=== PATIENT | female | born 1945 | race Caucasian/White ===

== ENCOUNTER 2019-12-25 09:06 | Outpatient (CLI) | payer MEDICARE, SELFPAY ==
[2019-12-25 10:00] LABS: Alanine Aminotransferase 22 U/L (14-59); Albumin Level 3.9 g/dL (3.4-5.0); Alkaline Phosphatase 67 U/L (46-116); Anion Gap 9.4 mmol/L (7-16); Aspartate Amino Transferase 20 U/L (15-37); Bilirubin,Total 0.6 mg/dL (0.00-1.00); Blood Urea Nitrogen 16 mg/dL (7-18); Calcium 9.5 mg/dL (8.5-10.1); Carbon Dioxide 31 mmol/L (21-32); Chloride 103 mmol/L (98-108); Cholesterol 177 mg/dL (0-200); Estimated Glomerular Filt Rate > 60; Glucose 86 mg/dL (70-99); HDL Direct 62 mg/dL (40-60); LDL Cholesterol Calculated 105 mg/dL (<130); Osmolality Calculated 288 mOsm/kg (285-295); Potassium 4.4 mmol/L (3.5-5.1); Sodium 139 mmol/L (136-145); Total Protein 7.2 g/dL (6.4-8.2); Triglycerides 51 mg/dL (0-150)
== END 2019-12-25 09:07 | disposition home or self-care (01) ==
LOC: CHSLAB 09:08
PROVIDERS: PCP Internal Medicine; Visit Provider Internal Medicine
DX: E78.5 Hyperlipidemia, unspecified (principal); I10 Essential (primary) hypertension
CPT/HCPCS: 36415; 80053; 80061

== ENCOUNTER 2020-10-05 08:33 | Outpatient (CLI) | payer MEDICARE, SELFPAY ==
[2020-10-05 08:52] LABS: Basophils Absolute Auto 0.09 K/mm3 (0.00-0.10); Basophils Percent Auto 1.1 % (0.0-1.0); Eosinophils Absolute Auto 0.18 K/mm3 (0.02-0.50); Eosinophils Percent Auto 2.3 % (1.0-6.0); Hematocrit 42.6 % (35.0-42.0); Hemoglobin 13.9 g/dL (11.7-13.8); Immature Granulocyte Absolute 0.02 K/mm3 (0.00-0.00); Immature Granulocyte Percent A 0.3 % (0.0-0.0); Lymphocytes Absolute Auto 1.89 K/mm3 (1.10-4.50); Lymphocytes Percent Auto 23.8 % (18.0-42.0); Mean Corpuscular HGB Conc 32.6 g/dL (32.0-36.0); Mean Corpuscular Hemoglobin 32.1 pg (27.0-31.0); Mean Corpuscular Volume 98.4 fL (78.0-102.0); Mean Platelet Volume 9.7 fl (9.2-11.8); Monocytes Absolute Auto 0.67 K/mm3 (0.10-0.90); Monocytes Percent Auto 8.4 % (2.0-11.0); Neutrophils Absolute Auto 5.1 K/mm3 (1.7-7.2); Neutrophils Percent Auto 64.1 % (50.0-70.0); Platelet Count Result 301 K/mm3 (150-420); Red Blood Count 4.33 M/mm3 (4.20-5.40); Red Cell Distribution Width 12.2 % (11.6-14.4); White Blood Count 7.9 K/mm3 (4.8-10.8)
[2020-10-05 08:56] LABS: Add Urine Microscopic? YES; Appearance Urine Clear (Clear); Bilirubin Urine Negative (Negative); Blood Urine 1+ (Negative); Color Urine Yellow (Yellow); Glucose Urine UA Negative (Negative); Ketones Urine Negative (Negative); Leukocyte Esterase Ur 1+ LEU/UL (Negative); Nitrate Urine Negative (Negative); Protein Urine Negative (Negative); Specific Grav Ur >= 1.030 (1.010-1.020); Urobilinogen Urine 0.2 mg/dL (0.2-1.0); pH Urine 5.5 (5.0-8.0)
[2020-10-05 09:11] LABS: Bacteria Urine Trace /hpf; RBC Urine 0-2 /hpf (0-2); Squamous Epithelial Cell Urine Rare /hpf (Few); WBC Urine 0-3 /hpf (0-3)
[2020-10-05 09:26] LABS: Alanine Aminotransferase 22 U/L (14-59); Albumin Level 3.8 g/dL (3.4-5.0); Alkaline Phosphatase 75 U/L (46-116); Anion Gap 5 mmol/L (8-16); Aspartate Amino Transferase 19 U/L (15-37); Bilirubin,Total 0.5 mg/dL (0.00-1.00); Blood Urea Nitrogen 14 mg/dL (7-18); Calcium 9.6 mg/dL (8.5-10.1); Carbon Dioxide 32 mmol/L (21-32); Chloride 104 mmol/L (98-108); Cholesterol 202 mg/dL (0-200); Estimated Glomerular Filt Rate > 60; Glucose 65 mg/dL (70-99); HDL Direct 72 mg/dL (40-60); LDL Cholesterol Calculated 113 mg/dL (<130); Osmolality Calculated 290 mOsm/kg (285-295); Potassium 4.3 mmol/L (3.5-5.1); Sodium 141 mmol/L (136-145); Total Protein 7.4 g/dL (6.4-8.2); Triglycerides 86 mg/dL (0-150)
== END 2020-10-05 08:34 | disposition home or self-care (01) ==
LOC: CHSLAB 08:35
PROVIDERS: PCP Internal Medicine; Visit Provider Internal Medicine
DX: E78.5 Hyperlipidemia, unspecified (principal); I10 Essential (primary) hypertension; R82.90 Unspecified abnormal findings in urine
CPT/HCPCS: 36415; 80053; 80061; 81001; 85025; 87086; 87088

== ENCOUNTER 2021-08-16 08:09 | Outpatient (CLI) | payer MEDICARE, SELFPAY ==
[2021-08-16 08:41] LABS: Appearance Urine Clear (Clear); Basophils Absolute Auto 0.08 K/mm3 (0.00-0.10); Basophils Percent Auto 1.2 % (0.0-1.0); Bilirubin Urine Negative (Negative); Color Urine Light Yellow (Yellow); Eosinophils Absolute Auto 0.19 K/mm3 (0.02-0.50); Eosinophils Percent Auto 2.9 % (1.0-6.0); Glucose Urine UA Negative (Negative); Hematocrit 41.8 % (35.0-42.0); Hemoglobin 13.9 g/dL (11.7-13.8); Immature Granulocyte Absolute 0.02 K/mm3 (0.00-0.00); Immature Granulocyte Percent A 0.3 % (0.0-0.0); Ketones Urine Negative (Negative); Leukocyte Esterase Ur Trace (Negative); Lymphocytes Absolute Auto 1.65 K/mm3 (1.10-4.50); Lymphocytes Percent Auto 24.8 % (18.0-42.0); Mean Corpuscular HGB Conc 33.3 g/dL (32.0-36.0); Mean Corpuscular Hemoglobin 32.6 pg (27.0-31.0); Mean Corpuscular Volume 97.9 fL (78.0-102.0); Mean Platelet Volume 9.7 fl (9.2-11.8); Monocytes Percent Auto 10.5 % (2.0-11.0); Neutrophils Percent Auto 60.3 % (50.0-70.0); Nitrate Urine Negative (Negative); Platelet Count Result 307 K/mm3 (150-420); Protein Urine Negative (Negative); Red Blood Count 4.27 M/mm3 (4.20-5.40); Red Cell Distribution Width 12.2 % (11.6-14.4); Specific Grav Ur 1.015 (1.010-1.020); Urobilinogen Urine 0.2 mg/dL (0.2-1.0); White Blood Count 6.7 K/mm3 (4.8-10.8); pH Urine 6.5 (5.0-8.0)
[2021-08-16 10:05] LABS: Add Urine Microscopic? YES; Bacteria Urine Trace /hpf; Blood Urine Trace-lysed (Negative); RBC Urine None seen /hpf (0-2); Squamous Epithelial Cell Urine Rare /hpf (Few); WBC Urine 0-3 /hpf (0-3)
[2021-08-16 11:37] LABS: Alanine Aminotransferase 21 U/L (14-59); Albumin Level 3.8 g/dL (3.4-5.0); Alkaline Phosphatase 69 U/L (46-116); Anion Gap 7 mmol/L (8-16); Aspartate Amino Transferase 16 U/L (15-37); Bilirubin,Total 0.6 mg/dL (0.00-1.00); Blood Urea Nitrogen 13 mg/dL (7-18); Calcium 9.5 mg/dL (8.5-10.1); Carbon Dioxide 29 mmol/L (21-32); Chloride 105 mmol/L (98-108); Cholesterol 195 mg/dL (0-200); Estimated Glomerular Filt Rate > 60; Glucose 89 mg/dL (70-99); HDL Direct 68 mg/dL (40-60); LDL Cholesterol Calculated 107 mg/dL (<130); Osmolality Calculated 291 mOsm/kg (285-295); Potassium 4.8 mmol/L (3.5-5.1); Sodium 141 mmol/L (136-145); Thyroid Stimulating Hormone 1.14 uIU/mL (0.36-3.74); Total Protein 7.2 g/dL (6.4-8.2); Triglycerides 99 mg/dL (0-150)
== END 2021-08-16 08:10 | disposition home or self-care (01) ==
LOC: CHSLAB 08:12
PROVIDERS: PCP Internal Medicine; Visit Provider Internal Medicine
DX: E78.5 Hyperlipidemia, unspecified (principal); I10 Essential (primary) hypertension
CPT/HCPCS: 36415; 80053; 80061; 81001; 84443; 85025

== ENCOUNTER 2022-10-16 08:41 | Outpatient (CLI) | payer MEDICARE, SELFPAY ==
--- NOTE | ~2022-10-16 | DEXA_ITS ---
Bone Density Report Name: ALIZA REGAN Age: 77 Sex: Female Ethnicity: White Date of : 1945 Indication: postmenopausal; screening for osteoporosis; height loss; hysterectomy; Referring Provider: Maged Vernon Study: Bone densitometry was performed. Exam Date: October 16, 2022 Accession number: [id number] Bone Density: Region BMD T-score Z-score Classification AP Spine(L1, L2, L3) 0.896 -1.1 1.2 Osteopenia Femoral Neck (Left) 0.504 -3.1 -1.0 Osteoporosis Total Hip (Left) 0.629 -2.6 -0.8 Osteoporosis Femoral Neck (Right) 0.603 -2.2 -0.1 Osteopenia Total Hip (Right) 0.718 -1.8 -0.1 Osteopenia Femoral Neck Mean 0.553 -2.7 -0.6 Osteoporosis Total Hip Mean 0.673 -2.2 -0.4 Osteopenia World Health Organization criteria for BMD impression classify patients as: Normal (T-score at or above -1.0), Osteopenia (T-score between -1.0 and -2.5), or Osteoporosis (T-score at or below -2.5). 10-year Fracture Risk: FRAX not reported because: Some T-score for Spine Total or Hip Total or Femoral Neck at or below -2.5 Clinical Information Provided by Patient: Has used the following medications: Fosamax (i.e. alendronate), Vitamin D, Calcium Has the following medical conditions: Hysterectomy Patient maximum height was 68 Menopause Age: 47 No regular weight bearing exercise Does not regularly consume dairy products Drinks caffeinated beverages Onset of menses at age 18 Number of children 1 Impression: The patient has osteoporosis, based on the Left Femoral Neck T-score. Discussion: INCREASED RISK OF FRACTURE. BONE DENSITY IS UNDESIRABLY LOW AT ONE OR MORE SKELETAL SITES, CONSISTENT WITH POSTMENOPAUSAL OSTEOPOROSIS. This patient's lowest T-score meets the World Health Organization's (WHO) criteria for osteoporosis at one or more sites (T-score -2.5 or below). In untreated patients, the risk of osteoporotic fracture increases approximately two-fold for each 1.0 SD decrease in T-score. Low bone density is not the only risk factor for fracture; also consider factors such as patient's age, frailty or poor health, risk of falling, risk of injury, previous osteoporotic fracture, family history of osteoporosis, cigarette smoking, low body weight, etc. Not everyone with low bone mineral density has osteoporosis; osteomalacia and other metabolic bone disorders should also be considered. Patients who have osteoporosis should be evaluated for specific diseases and conditions (secondary causes) that may cause or contribute to bone loss. The [place] [employer]ocrin[employer] (AACE) and National Osteoporosis Foundation (NOF) recommend pharmacologic intervention for all postmenopausal women whose T-score is in this range. The patient should follow a healthful lifestyle (good nutrition with adequat
--- NOTE | ~2022-10-16 | MM_ITS ---
EXAMINATION: MM screening [facility] ujdy HISTORY: Screening mammogram TECHNIQUE: Craniocaudal and mediolateral oblique 3-D tomosynthesis images were obtained and synthetic 2-D images were generated. CAD analysis was submitted and interpreted. COMPARISON: 06/23/2019, 05/17/2016, 07/08/2012 BREAST PARENCHYMAL COMPOSITION: There are scattered areas of fibroglandular density. FINDINGS: No suspicious mass, calcification, or architectural distortion are identified in either trav ast to suggest malignancy. There has been no suspicious interval change. IMPRESSION: 1. No mammographic evidence of malignancy. 2. Recommend routine screening mammography in one year. BI-RADS Category 1: Negative Reviewed, dictated and finalized at location A.
[2022-10-16 08:56] LABS: Appearance Urine Clear (Clear); Basophils Absolute Auto 0.09 K/mm3 (0.00-0.10); Basophils Percent Auto 1.2 % (0.0-1.0); Bilirubin Urine Negative (Negative); Blood Urine Trace-Intact (Negative); Color Urine Light Yellow (Yellow); Eosinophils Absolute Auto 0.13 K/mm3 (0.02-0.50); Eosinophils Percent Auto 1.7 % (1.0-6.0); Glucose Urine UA Negative (Negative); Hematocrit 40.1 % (35.0-42.0); Hemoglobin 13.6 g/dL (11.7-13.8); Immature Granulocyte Absolute 0.04 K/mm3 (0.00-0.00); Immature Granulocyte Percent A 0.5 % (0.0-0.0); Ketones Urine Negative (Negative); Leukocyte Esterase Ur 1+ (Negative); Lymphocytes Absolute Auto 1.69 K/mm3 (1.10-4.50); Lymphocytes Percent Auto 22.1 % (18.0-42.0); Mean Corpuscular HGB Conc 33.9 g/dL (32.0-36.0); Mean Corpuscular Hemoglobin 33.6 pg (27.0-31.0); Mean Platelet Volume 9.5 fl (9.2-11.8); Monocytes Absolute Auto 0.65 K/mm3 (0.10-0.90); Monocytes Percent Auto 8.5 % (2.0-11.0); Neutrophils Absolute Auto 5.1 K/mm3 (1.7-7.2); Nitrate Urine Negative (Negative); Platelet Count Result 310 K/mm3 (150-420); Protein Urine Negative (Negative); Red Blood Count 4.05 M/mm3 (4.20-5.40); Red Cell Distribution Width 12.4 % (11.6-14.4); Specific Grav Ur 1.025 (1.010-1.020); Urobilinogen Urine 0.2 mg/dL (0.2-1.0); White Blood Count 7.7 K/mm3 (4.8-10.8)
[2022-10-16 09:00] LABS: Add Urine Microscopic? YES; Bacteria Urine Rare /hpf; RBC Urine None seen /hpf (0-2); Squamous Epithelial Cell Urine Few /hpf (Few)
[2022-10-16 09:36] LABS: Alanine Aminotransferase 22 U/L (14-59); Albumin Level 3.9 g/dL (3.4-5.0); Alkaline Phosphatase 72 U/L (46-116); Anion Gap 5 mmol/L (8-16); Aspartate Amino Transferase 21 U/L (15-37); Bilirubin,Total 0.5 mg/dL (0.00-1.00); Blood Urea Nitrogen 16 mg/dL (7-18); Calcium 9.5 mg/dL (8.5-10.1); Carbon Dioxide 32 mmol/L (21-32); Chloride 105 mmol/L (98-108); Cholesterol 204 mg/dL (0-200); Estimated Glomerular Filt Rate > 60; Glucose 92 mg/dL (70-99); HDL Direct 75 mg/dL (40-60); LDL Cholesterol Calculated 117 mg/dL (<130); Osmolality Calculated 295 mOsm/kg (285-295); Potassium 4.3 mmol/L (3.5-5.1); Sodium 142 mmol/L (136-145); Thyroid Stimulating Hormone 1.24 uIU/mL (0.36-3.74); Total Protein 7.3 g/dL (6.4-8.2); Triglycerides 59 mg/dL (0-150)
== END 2022-10-16 08:42 | disposition home or self-care (01) ==
LOC: CHSIMG 08:42
PROVIDERS: PCP Internal Medicine; Visit Provider Internal Medicine
DX: Z12.31 Encounter for screening mammogram for malignant neoplasm of breast (principal); Z78.0 Asymptomatic menopausal state; E78.5 Hyperlipidemia, unspecified; M81.0 Age-related osteoporosis without current pathological fracture; M85.89 Other specified disorders of bone density and structure, multiple sites
CPT/HCPCS: 36415; 77063; 77067; 77080; 80053; 80061; 81001; 84443; 85025

== ENCOUNTER 2023-07-30 09:14 | Outpatient (CLI) | payer MEDICARE, SELFPAY ==
--- NOTE | ~2023-07-30 | XR_ITS ---
Right Knee Technique: AP, lateral, and sunrise views were obtained. Clinical History: Pain Findings: No fracture or dislocation is seen. Osseous alignment is anatomic. There is mild tricompart mental degenerative change. Soft tissues are unremarkable. No joint effusion is seen. Impression: Mild tricompartmental degenerative change. Reviewed, dictated and finalized at [facility]. EL REPAIRER Impression: Mild tricompartmental degenerative change.
--- NOTE | ~2023-07-30 | XR_ITS ---
Lumbosacral Spine: AP and lateral views Clinical History: Pain Findings: There is levoscoliosis of lumbar spine. No acute fracture evident. There is severe degenera tive disc narrowing throughout the lumbar spine with severe facet arthropathy throughout lumbar spine . The sacroiliac joints are normally outlined. Impression: Levoscoliosis with severe degenerative spondylosis throughout the lumbar spine. Reviewed, dictated and finalized at location . ALDERMAN Impression: Levoscoliosis with severe degenerative spondylosis throughout the lumbar spine.
--- NOTE | ~2023-07-30 | XR_ITS ---
Left Knee Technique: AP, lateral, and sunrise views were obtained. Clinical History: Pain Findings: No fracture or dislocation is seen. Osseous alignment is anatomic. There is mild tricompart mental degenerative change. Soft tissues are unremarkable. No joint effusion is seen. Impression: Mild tricompartmental degenerative change. Reviewed, dictated and finalized at [facility]. GE MECHANIC Impression: Mild tricompartmental degenerative change.
--- NOTE | ~2023-07-30 | XR_ITS ---
AP and lateral views of the left hip Clinical history: Pain Findings: No acute fracture or dislocation is seen. Osseous alignment is anatomic. Left hip joint is preserved. Soft tissues are unremarkable. Impression: No significant abnormality is seen. Reviewed, dictated and finalized at location M. COUNSELOR Impression: No significant abnormality is seen.
--- NOTE | ~2023-07-30 | XR_ITS ---
AP and lateral views of the right hip Clinical history: Pain Findings: No acute fracture or dislocation is seen. Osseous alignment is anatomic. Right hip joint is preserved. Soft tissues are unremarkable. Impression: No significant abnormality is seen. Reviewed, dictated and finalized at location M. UP / OPERATOR Impression: No significant abnormality is seen.
--- NOTE | ~2023-07-30 | US_ITS ---
EXAMINATION: US arterial ankle brachial ind DATE: 07/30/2023 09:56 INDICATION: Peripheral arterial occlusive disease with bilateral lower limb pain TECHNIQUE: Segmental pressures and plethysmographic and Doppler waveforms of the brachial and lower e xtremity arteries were obtained. COMPARISON: None. FINDINGS: Right and left brachial artery pressures of 119 mm Hg and 125 mm Hg, respectively, are concordant (no rmal difference <= 30 mmHg). The right ankle-brachial index (STEVE) is 1.17 (normal >= 0.9-1.0). The right great toe-brachial index (TBI) is 0.96 (normal >= 0.65). Arterial Doppler waveforms are biphasic with brisk systolic upstrokes at both right posterior tibial and dorsalis pedis arteries. The left STEVE is 1.20. The left TBI is 0.94. Arterial Doppler waveforms are biphasic with brisk systol ic upstrokes at both left posterior tibial and dorsalis pedis arteries. IMPRESSION: 1. No significant arterial occlusive disease to either lower limb with normal bilateral ABIs and TBIs . Reviewed, dictated and finalized at location A. E TOWER OPERATOR IMPRESSION: 1. No significant arterial occlusive disease to either lower limb with normal b ilateral ABIs and TBIs.
== END 2023-07-30 09:15 | disposition home or self-care (01) ==
LOC: CHSIMG 09:17
PROVIDERS: PCP Internal Medicine; Visit Provider Internal Medicine
DX: I73.9 Peripheral vascular disease, unspecified (principal); M79.605 Pain in left leg; M79.604 Pain in right leg; M43.06 Spondylolysis, lumbar region; M41.87 Other forms of scoliosis, lumbosacral region
CPT/HCPCS: 72100; 73502; 73562; 93922

== ENCOUNTER 2023-11-25 08:41 | Outpatient (CLI) | payer MEDICARE, SELFPAY ==
[2023-11-25 08:59] LABS: Basophils Absolute Auto 0.06 K/mm3 (0.00-0.10); Basophils Percent Auto 0.9 % (0.0-1.0); Eosinophils Absolute Auto 0.16 K/mm3 (0.02-0.50); Eosinophils Percent Auto 2.4 % (1.0-6.0); Hematocrit 42.1 % (35.0-42.0); Immature Granulocyte Absolute 0.02 K/mm3 (0.00-0.00); Immature Granulocyte Percent A 0.3 % (0.0-0.0); Lymphocytes Absolute Auto 1.87 K/mm3 (1.10-4.50); Lymphocytes Percent Auto 28.5 % (18.0-42.0); Mean Corpuscular HGB Conc 33.3 g/dL (32-36); Mean Corpuscular Hemoglobin 33.1 pg (27.0-31.0); Mean Corpuscular Volume 99.5 fL (78.0-102.0); Mean Platelet Volume 9.4 fl (9.2-11.8); Monocytes Absolute Auto 0.74 K/mm3 (0.10-0.90); Monocytes Percent Auto 11.3 % (2.0-11.0); Neutrophils Absolute Auto 3.72 K/mm3 (1.70-7.20); Neutrophils Percent Auto 56.6 % (50.0-70.0); Platelet Count Result 308 K/mm3 (150-420); Red Blood Count 4.23 M/mm3 (4.20-5.40); Red Cell Distribution Width 12.3 % (11.6-14.4); White Blood Count 6.6 K/mm3 (4.8-10.8)
[2023-11-25 09:00] LABS: Appearance Urine Clear (Clear); Bilirubin Urine Negative (Negative); Blood Urine Trace-intact (Negative); Color Urine Light Yellow (Yellow); Glucose Urine UA Negative (Negative); Ketones Urine Negative (Negative); Leukocyte Esterase Ur 2+ (Negative); Nitrate Urine Negative (Negative); Protein Urine Negative (Negative); Specific Grav Ur <= 1.005 (1.010-1.020); Urobilinogen Urine 0.2 mg/dL (0.2-1.0); pH Urine 6.5 (5.0-8.0)
[2023-11-25 09:13] LABS: Add Urine Microscopic? YES; RBC Urine 0-2 /hpf (0-2)
[2023-11-25 09:14] LABS: Bacteria Urine Trace /hpf; Squamous Epithelial Cell Urine Few /hpf (Few); White Blood Cell Casts Urine Present /lpf
[2023-11-25 09:51] LABS: Alanine Aminotransferase 22 U/L (14-59); Albumin Level 3.7 g/dL (3.4-5.0); Alkaline Phosphatase 58 U/L (46-116); Anion Gap 5 mmol/L (4-12); Aspartate Amino Transferase 21 U/L (15-37); Bilirubin,Total 0.5 mg/dL (0.00-1.00); Blood Urea Nitrogen 12 mg/dL (7-18); Calcium 9.8 mg/dL (8.5-10.1); Carbon Dioxide 32 mmol/L (21-32); Chloride 102 mmol/L (98-108); Cholesterol 219 mg/dL (0-200); Estimated Glomerular Filt Rate > 60; Glucose 88 mg/dL (70-99); HDL Direct 64 mg/dL (40-60); LDL Cholesterol Calculated 135 mg/dL (<130); Osmolality Calculated 286 mOsm/kg (285-295); Potassium 4.7 mmol/L (3.5-5.1); Sodium 139 mmol/L (136-145); Thyroid Stimulating Hormone 1.58 uIU/mL (0.36-3.74); Total Protein 7.2 g/dL (6.4-8.2); Triglycerides 100 mg/dL (0-150)
== END 2023-11-25 08:42 | disposition home or self-care (01) ==
LOC: CHSLAB 08:45
PROVIDERS: PCP Internal Medicine; Visit Provider Internal Medicine
DX: I10 Essential (primary) hypertension (principal); E78.5 Hyperlipidemia, unspecified; M81.0 Age-related osteoporosis without current pathological fracture
CPT/HCPCS: 36415; 80053; 80061; 81001; 84443; 85025